=== PATIENT | female | born 1970 | race Caucasian/White ===

== ENCOUNTER 2017-02-15 12:31 | Emergency (ER) | payer SELFPAY ==
[~2017-02-15] VITALS: Ht 165.1 cm; Wt 152.7 kg
[~2017-02-15 12:31] MED LIST: CYAN100T PO; DOCU-30 PO; ERGO500017 PO; LEVO150T PO; LEVO300T4 PO; LEVO75TA5 PO; METH500T7 PO; ONDA4TAB7 PO; OXYC20TA2 PO; OXYC5CAP4 PO; OXYC5TAB3 PO; POLY17PO5 PO; SOLI10TA PO; VENL150C PO; VENL75TA2 PO; WARF5TAB PO; WARF5TAB7 PO-COUM; ZOLP10TA PO; [UNRECOGNIZED DRUG - OTHER]
[2017-02-15 12:34] VITALS: BP 175/110
[2017-02-15] MEDS ORDERED: KETOROLAC 30 MG/1 ML IM ONE (14:00)
[2017-02-15] MEDS ORDERED: KETOROLAC 30 MG/1 ML ONE (14:09)
[2017-02-15] MEDS ORDERED: ONDANSETRON ODT 4 MG PO ONE (14:30)
[2017-02-15] MEDS ORDERED: ONDANSETRON ODT 4 MG ONE (14:32)
== END 2017-02-15 14:47 | disposition left against medical advice (07) ==
LOC: ED 14:41
DX: S40.012A Contusion of left shoulder, initial encounter (principal); M19.212 Secondary osteoarthritis, left shoulder; I10 Essential (primary) hypertension; E11.9 Type 2 diabetes mellitus without complications; E07.9 Disorder of thyroid, unspecified; Z90.49 Acquired absence of other specified parts of digestive tract; Z90.710 Acquired absence of both cervix and uterus; Z88.0 Allergy status to penicillin; Z88.1 Allergy status to other antibiotic agents; Z79.01 Long term (current) use of anticoagulants; W18.2XXA Fall in (into) shower or empty bathtub, initial encounter; Y93.89 Activity, other specified; Y92.89 Other specified places as the place of occurrence of the external cause; Y99.8 Other external cause status
CPT/HCPCS: 73030; 96372; 99284; J1885

== ENCOUNTER 2017-07-18 00:22 | Inpatient (IN) | payer SELFPAY ==
[~2017-07-18] VITALS: Ht 165.1 cm; Wt 156.1 kg
[~2017-07-18 00:22] MED LIST changes: +DOCU-131 PO; -DOCU-30 PO; +OXYC5CAP2 PO; -OXYC5CAP4 PO; -SOLI10TA PO; +SOLI10TA2 PO
[2017-07-18] MEDS ORDERED: HYDROmorphone 1 MG/ML, 1ML IM PRN (01:00)
[2017-07-18] MEDS ORDERED: HYDROmorphone 1 MG/ML, 1ML ONE ×3 (01:03→05:51)
[2017-07-18] MEDS ORDERED: FENTANYL PF 100 MCG/2ML ONE ×4 (02:34→11:04)
[2017-07-18] MEDS ORDERED: KETAMINE 10 MG/ML, 20ML ONE (02:35)
[2017-07-18] MEDS ORDERED: FENTANYL PF 100 MCG/2ML IV ONE (03:00)
[2017-07-18] MEDS ORDERED: ONDANSETRON 2MG/ML, 2ML ONE ×2 (03:40→08:50)
[2017-07-18] MEDS ORDERED: ONDANSETRON 2MG/ML, 2ML IVPush ONE ×2 (04:30)
[2017-07-18] MEDS ORDERED: NS + 20MEQ KCL 1,000 ML IV SCH (05:01)
[2017-07-18] MEDS: HYDROmorphone 1 MG/ML, 1ML IV PRN ×2 (05:27→05:50)
[2017-07-18] MEDS ORDERED: KETAMINE 10 MG/ML, 20ML IV ONE (05:30)
[2017-07-18] MEDS ORDERED: POLYETHYLENE GLYCOL 17 GM PACKET PO PRN (05:30)
[2017-07-18] MEDS ORDERED: OXYcodone IR 5MG TABLET PO PRN (05:30)
[2017-07-18 05:58] LABS: HEMATOCRIT 39.9 % (34.6-47.8); HEMOGLOBIN 13.2 g/dL (11.7-16.4); WHITE BLOOD COUNT 8.1 x10^3/uL (3.4-10)
[2017-07-18 06:14] LABS: BLOOD UREA NITROGEN 11 mg/dL (7-18)
[2017-07-18 06:57] VITALS: BP 138/84
[2017-07-18] MEDS: INSULIN ASPART 100 UNITS/ML, PEN SQ-INSULIN SCH ×4 (07:00→21:04)
[2017-07-18] MEDS: morphine SULFATE 10 MG/ML, 1ML IVPush PRN ×5 (07:19→22:26)
[2017-07-18] MEDS ORDERED: EPINEPHRINE 1 MG/ML, 1ML ONE (08:03)
[2017-07-18] MEDS ORDERED: BUPIVACAINE/PF 0.5% ONE (08:04)
[2017-07-18] MEDS ORDERED: MIDAZOLAM 1 MG/ML, 2ML ONE (08:15)
[2017-07-18] MEDS ORDERED: PROPOFOL 10 MG/ML, 50ML ONE (08:50)
[2017-07-18] MEDS ORDERED: CEFAZOLIN 1,000 MG ONE (08:50)
[2017-07-18] MEDS ORDERED: METOPROLOL 1 MG/ML, 5ML ONE (08:50)
[2017-07-18] MEDS ORDERED: DEXAMETHASONE 4 MG/ML, 1ML ONE (08:50)
[2017-07-18] MEDS: SENNA/DOCUSATE TABLET PO SCH (09:00)
[2017-07-18] MEDS: LEVOTHYROXINE 150 MCG TABLET PO SCH (09:00)
[2017-07-18] MEDS ORDERED: HYDROmorphone 1 MG/ML, 1ML IV PRN (10:00)
[2017-07-18] MEDS ORDERED: MEPERIDINE/PF 25MG/0.5ML IVPush PRN (10:00)
[2017-07-18] MEDS ORDERED: OXYcodone 5 MG/5 ML ORAL.SOL UDC PO PRN (10:00)
[2017-07-18] MEDS ORDERED: ALBUTEROL SULFATE 2.5 MG/3 ML NPPB PRN (10:00)
[2017-07-18] MEDS ORDERED: hydrALAzine 20 MG/ML, 1ML IV PRN (10:00)
[2017-07-18] MEDS ORDERED: METOPROLOL 1 MG/ML, 5ML IV PRN (10:00)
[2017-07-18] MEDS ORDERED: PROMETHAZINE 25 MG/ML, 1ML IV PRN (10:00)
[2017-07-18] MEDS: FENTANYL PF 100 MCG/2ML IV PRN ×2 (11:00→11:20)
[2017-07-18] MEDS ORDERED: MEPERIDINE/PF 25MG/0.5ML ONE (11:05)
[2017-07-18] MEDS ORDERED: OXYcodone 5 MG/5 ML ORAL.SOL UDC ONE (11:05)
[2017-07-18] MEDS ORDERED: HYDROmorphone 2 MG/ML, 1ML ONE (11:27)
[2017-07-18 14:29] VITALS: BP 117/53
[2017-07-18] MEDS: CEFAZOLIN PMX 2GM/50ML 50 ML IVPB SCH (16:56)
[2017-07-18] MEDS: OXYcodone IR 5MG TABLET PO PRN (19:16)
[2017-07-18] MEDS: ONDANSETRON 2MG/ML, 2ML IVPush PRN (19:21)
[2017-07-18 19:59] VITALS: BP 168/84
[2017-07-18] MEDS: ZOLPIDEM 10MG TABLET PO SCH (21:00)
[2017-07-18] MEDS: ENOXAPARIN 40 MG/0.4 ML SQ SCH (21:01)
[2017-07-18 23:27] VITALS: BP 135/79
[2017-07-19] MEDS: CEFAZOLIN PMX 2GM/50ML 50 ML IVPB SCH (00:49)
[2017-07-19] MEDS: OXYcodone IR 5MG TABLET PO PRN ×6 (01:27→23:58)
[2017-07-19 01:40] VITALS: BP 117/65
[2017-07-19] MEDS: morphine SULFATE 10 MG/ML, 1ML IVPush PRN ×3 (02:23→09:45)
[2017-07-19 05:52] LABS: BLOOD UREA NITROGEN 9 mg/dL (7-18)
[2017-07-19] MEDS: INSULIN ASPART 100 UNITS/ML, PEN SQ-INSULIN SCH ×4 (06:08→21:45)
[2017-07-19] MEDS: ONDANSETRON 2MG/ML, 2ML IVPush PRN ×4 (06:31→23:58)
[2017-07-19] MEDS: SENNA/DOCUSATE TABLET PO SCH (08:05)
[2017-07-19] MEDS: LEVOTHYROXINE 150 MCG TABLET PO SCH (08:09)
[2017-07-19 08:18] VITALS: BP 112/67
[2017-07-19 13:17] VITALS: BP 120/77
[2017-07-19] MEDS ORDERED: WARFARIN 7.5 MG TABLET PO-COUM ONE (18:30)
[2017-07-19 18:47] VITALS: BP 117/59
[2017-07-19] MEDS: ENOXAPARIN 40 MG/0.4 ML SQ SCH (20:14)
[2017-07-19] MEDS: VENLAFAXINE 75MG TABLET PO SCH (20:14)
[2017-07-19] MEDS: ZOLPIDEM 10MG TABLET PO SCH (22:05)
[2017-07-19] MEDS: ALUMINUM/MAG/SIMETHICONE 30 ML UDC PO PRN (23:01)
[2017-07-20 01:42] VITALS: BP 88/55
[2017-07-20] MEDS: OXYcodone IR 5MG TABLET PO PRN ×5 (03:55→21:15)
[2017-07-20] MEDS: DOCUSATE 100 MG CAPSULE PO PRN ×2 (03:55→21:15)
[2017-07-20] MEDS: INSULIN ASPART 100 UNITS/ML, PEN SQ-INSULIN SCH (06:25)
[2017-07-20 07:26] VITALS: BP 93/57
[2017-07-20] MEDS: LEVOTHYROXINE 150 MCG TABLET PO SCH (08:34)
[2017-07-20] MEDS: SENNA/DOCUSATE TABLET PO SCH (08:34)
[2017-07-20] MEDS: VENLAFAXINE 75MG TABLET PO SCH ×2 (08:34→21:23)
[2017-07-20] MEDS: ALUMINUM/MAG/SIMETHICONE 30 ML UDC PO PRN (10:32)
[2017-07-20] MEDS: CYCLOBENZAPRINE 10 MG TABLET PO PRN ×2 (10:36→21:15)
[2017-07-20 13:29] VITALS: BP 103/57
[2017-07-20] MEDS: ONDANSETRON 2MG/ML, 2ML IVPush PRN (17:40)
[2017-07-20] MEDS ORDERED: WARFARIN 7.5 MG TABLET PO-COUM SCH (18:00)
[2017-07-20] MEDS ORDERED: LORazepam 0.5MG TABLET PO ONE (19:30)
[2017-07-20 20:15] VITALS: BP 96/61
[2017-07-20] MEDS ORDERED: LORazepam 1MG TABLET ONE (21:10)
[2017-07-20] MEDS: ZOLPIDEM 10MG TABLET PO SCH (21:15)
[2017-07-20] MEDS: ENOXAPARIN 40 MG/0.4 ML SQ SCH (21:23)
[2017-07-21] MEDS: ALUMINUM/MAG/SIMETHICONE 30 ML UDC PO PRN ×3 (00:10→21:00)
[2017-07-21] MEDS: ONDANSETRON 2MG/ML, 2ML IVPush PRN ×2 (00:11→06:10)
[2017-07-21] MEDS: OXYcodone IR 5MG TABLET PO PRN ×5 (00:58→19:20)
[2017-07-21 04:42] VITALS: BP 91/52
[2017-07-21] MEDS: CYCLOBENZAPRINE 10 MG TABLET PO PRN ×3 (06:04→21:01)
[2017-07-21] MEDS: DOCUSATE 100 MG CAPSULE PO PRN ×2 (06:10→21:01)
[2017-07-21 07:59] VITALS: BP 90/54
[2017-07-21] MEDS: VENLAFAXINE 75MG TABLET PO SCH ×2 (08:55→21:01)
[2017-07-21] MEDS: SENNA/DOCUSATE TABLET PO SCH (08:55)
[2017-07-21] MEDS: LEVOTHYROXINE 150 MCG TABLET PO SCH (08:56)
[2017-07-21 13:06] VITALS: BP 91/58
[2017-07-21] MEDS ORDERED: WARFARIN 10 MG TABLET PO-COUM ONE (18:00)
[2017-07-21 19:00] VITALS: BP 123/67
[2017-07-21] MEDS: ZOLPIDEM 10MG TABLET PO SCH (21:01)
[2017-07-21] MEDS: ENOXAPARIN 40 MG/0.4 ML SQ SCH (21:01)
[2017-07-22] MEDS: OXYcodone IR 5MG TABLET PO PRN ×6 (00:28→22:08)
[2017-07-22 03:23] VITALS: BP 102/69
[2017-07-22] MEDS: CYCLOBENZAPRINE 10 MG TABLET PO PRN ×3 (05:14→22:08)
[2017-07-22 08:16] VITALS: BP 92/53
[2017-07-22] MEDS: SENNA/DOCUSATE TABLET PO SCH (08:43)
[2017-07-22] MEDS: LEVOTHYROXINE 150 MCG TABLET PO SCH (08:43)
[2017-07-22] MEDS: VENLAFAXINE 75MG TABLET PO SCH ×2 (08:43→22:08)
[2017-07-22 14:15] VITALS: BP 90/54
[2017-07-22] MEDS ORDERED: WARFARIN 10 MG TABLET PO-COUM ONE (18:00)
[2017-07-22 18:59] VITALS: BP 99/66
[2017-07-22] MEDS: ENOXAPARIN 40 MG/0.4 ML SQ SCH (22:07)
[2017-07-22] MEDS: ZOLPIDEM 10MG TABLET PO SCH (22:08)
[2017-07-23 02:12] VITALS: BP 91/60
[2017-07-23] MEDS: OXYcodone IR 5MG TABLET PO PRN ×5 (02:18→21:28)
[2017-07-23] MEDS: LEVOTHYROXINE 150 MCG TABLET PO SCH (07:28)
[2017-07-23 07:41] VITALS: BP 92/57
[2017-07-23] MEDS: SENNA/DOCUSATE TABLET PO SCH (08:57)
[2017-07-23] MEDS: CYCLOBENZAPRINE 10 MG TABLET PO PRN ×2 (08:57→17:33)
[2017-07-23] MEDS: VENLAFAXINE 75MG TABLET PO SCH ×2 (08:57→21:28)
[2017-07-23 12:57] VITALS: BP 92/53
[2017-07-23] MEDS ORDERED: WARFARIN 5 MG TABLET PO-COUM SCH (18:00)
[2017-07-23 20:00] VITALS: BP 98/52
[2017-07-23 20:05] VITALS: BP 90/52
[2017-07-23] MEDS: ZOLPIDEM 10MG TABLET PO SCH (21:29)
[2017-07-24] MEDS: OXYcodone IR 5MG TABLET PO PRN ×5 (01:31→20:48)
[2017-07-24] MEDS: CYCLOBENZAPRINE 10 MG TABLET PO PRN ×3 (01:32→18:13)
[2017-07-24 02:10] VITALS: BP 97/56
[2017-07-24 07:01] VITALS: BP 91/50
[2017-07-24] MEDS: VENLAFAXINE 75MG TABLET PO SCH ×2 (09:13→20:48)
[2017-07-24] MEDS: LEVOTHYROXINE 150 MCG TABLET PO SCH (09:14)
[2017-07-24] MEDS: SENNA/DOCUSATE TABLET PO SCH (09:14)
[2017-07-24 13:40] VITALS: BP 88/46
[2017-07-24 16:03] VITALS: BP 106/50
[2017-07-24] MEDS ORDERED: WARFARIN 3 MG TABLET PO-COUM SCH (18:00)
[2017-07-24] MEDS ORDERED: ONDANSETRON ODT 4 MG ONE (18:11)
[2017-07-24] MEDS ORDERED: ONDANSETRON 4 MG TABLET PO PRN (18:30)
[2017-07-24] MEDS: ZOLPIDEM 10MG TABLET PO SCH (20:47)
[2017-07-24 20:55] VITALS: BP 109/60
[2017-07-25] MEDS: OXYcodone IR 5MG TABLET PO PRN ×5 (00:37→20:00)
[2017-07-25 02:41] VITALS: BP 101/64
[2017-07-25] MEDS: CYCLOBENZAPRINE 10 MG TABLET PO PRN ×3 (03:07→20:00)
[2017-07-25] MEDS: LEVOTHYROXINE 150 MCG TABLET PO SCH (06:47)
[2017-07-25 07:19] VITALS: BP 98/57
[2017-07-25] MEDS: VENLAFAXINE 75MG TABLET PO SCH ×2 (10:51→21:20)
[2017-07-25] MEDS: SENNA/DOCUSATE TABLET PO SCH (10:51)
[2017-07-25 12:40] VITALS: BP 130/69
[2017-07-25] MEDS ORDERED: WARFARIN 7.5 MG TABLET PO-COUM SCH (18:00)
[2017-07-25 19:54] VITALS: BP 125/69
[2017-07-25] MEDS: ALUMINUM/MAG/SIMETHICONE 30 ML UDC PO PRN (20:00)
[2017-07-25] MEDS: ZOLPIDEM 10MG TABLET PO SCH (21:20)
[2017-07-26] MEDS: OXYcodone IR 5MG TABLET PO PRN ×6 (00:06→21:35)
[2017-07-26 02:06] VITALS: BP 111/59
[2017-07-26] MEDS: LEVOTHYROXINE 150 MCG TABLET PO SCH (04:26)
[2017-07-26] MEDS: CYCLOBENZAPRINE 10 MG TABLET PO PRN ×3 (04:30→21:34)
[2017-07-26 07:06] VITALS: BP 91/60
[2017-07-26] MEDS: SENNA/DOCUSATE TABLET PO SCH (09:17)
[2017-07-26] MEDS: VENLAFAXINE 75MG TABLET PO SCH ×2 (09:17→21:34)
[2017-07-26 15:53] VITALS: BP 93/62
[2017-07-26] MEDS ORDERED: WARFARIN 7.5 MG TABLET PO-COUM SCH (18:00)
[2017-07-26 20:04] VITALS: BP 97/54
[2017-07-26] MEDS: ZOLPIDEM 10MG TABLET PO SCH (21:35)
[2017-07-27 01:52] VITALS: BP 98/57
[2017-07-27] MEDS: OXYcodone IR 5MG TABLET PO PRN ×6 (02:19→23:07)
[2017-07-27] MEDS: LEVOTHYROXINE 150 MCG TABLET PO SCH (06:20)
[2017-07-27 07:18] VITALS: BP 133/61
[2017-07-27] MEDS: VENLAFAXINE 75MG TABLET PO SCH ×2 (09:45→21:43)
[2017-07-27] MEDS: SENNA/DOCUSATE TABLET PO SCH (09:45)
[2017-07-27 13:40] VITALS: BP 104/59
[2017-07-27 14:46] VITALS: BP 106/63
[2017-07-27] MEDS ORDERED: WARFARIN 7.5 MG TABLET PO-COUM ONE (18:00)
[2017-07-27 19:25] VITALS: BP 93/56
[2017-07-27] MEDS: ZOLPIDEM 10MG TABLET PO SCH (21:43)
[2017-07-27] MEDS: CYCLOBENZAPRINE 10 MG TABLET PO PRN (21:47)
[2017-07-28 02:25] VITALS: BP 100/56
[2017-07-28] MEDS: OXYcodone IR 5MG TABLET PO PRN ×5 (03:55→21:52)
[2017-07-28] MEDS: LEVOTHYROXINE 150 MCG TABLET PO SCH (06:37)
[2017-07-28 07:29] VITALS: BP 97/65
[2017-07-28] MEDS: SENNA/DOCUSATE TABLET PO SCH (09:32)
[2017-07-28] MEDS: VENLAFAXINE 75MG TABLET PO SCH ×2 (09:32→21:52)
[2017-07-28 13:32] VITALS: BP 102/71
[2017-07-28] MEDS: CYCLOBENZAPRINE 10 MG TABLET PO PRN ×2 (13:59→21:52)
[2017-07-28] MEDS ORDERED: WARFARIN 3 MG TABLET PO-COUM ONE (18:00)
[2017-07-28 19:20] VITALS: BP 105/69
[2017-07-28] MEDS: ZOLPIDEM 10MG TABLET PO SCH (21:52)
[2017-07-29] MEDS: OXYcodone IR 5MG TABLET PO PRN ×5 (03:16→21:17)
[2017-07-29] MEDS: LEVOTHYROXINE 150 MCG TABLET PO SCH (05:45)
[2017-07-29 07:03] VITALS: BP 92/54
[2017-07-29] MEDS: VENLAFAXINE 75MG TABLET PO SCH ×2 (08:30→21:17)
[2017-07-29] MEDS: SENNA/DOCUSATE TABLET PO SCH (08:30)
[2017-07-29] MEDS: CYCLOBENZAPRINE 10 MG TABLET PO PRN ×2 (12:23→21:17)
[2017-07-29 13:00] VITALS: BP 107/67
[2017-07-29] MEDS ORDERED: WARFARIN 5 MG TABLET PO-COUM ONE (18:00)
[2017-07-29 19:53] VITALS: BP 137/80
[2017-07-29] MEDS: ZOLPIDEM 10MG TABLET PO SCH (21:17)
[2017-07-30] MEDS: OXYcodone IR 5MG TABLET PO PRN ×4 (01:40→14:39)
[2017-07-30 02:44] VITALS: BP 119/77
[2017-07-30] MEDS: LEVOTHYROXINE 150 MCG TABLET PO SCH (06:12)
[2017-07-30 08:16] VITALS: BP 132/81
[2017-07-30 09:18] VITALS: BP 95/65
[2017-07-30] MEDS: VENLAFAXINE 75MG TABLET PO SCH (09:20)
[2017-07-30] MEDS: SENNA/DOCUSATE TABLET PO SCH (09:20)
[2017-07-30] MEDS ORDERED: OXYC5CAP2 PO (15:13)
[2017-07-30] MEDS ORDERED: CYCL-259 PO (15:16)
[2017-07-30 16:28] VITALS: BP 121/83
[2017-07-30] MEDS ORDERED: WARFARIN 3 MG TABLET PO-COUM ONE (18:00)
== END 2017-07-30 16:40 | disposition home or self-care (01) | DRG 493 ==
LOC: ED 00:31 → EDIP 04:35 → SUATTDRO 04:54 → 4NOR 06:20
PROVIDERS: ADMIT Family Medicine; ATTEND Family Medicine
PROC: 0QSH04Z Reposition Left Tibia with Internal Fixation Device, Open Approach (ICD-10-PCS; 2017-07-18)
PROC: 0QSK04Z Reposition Left Fibula with Internal Fixation Device, Open Approach (ICD-10-PCS; principal; 2017-07-18 08:30)
DX: S82.842A Displaced bimalleolar fracture of left lower leg, initial encounter for closed fracture (principal); Z68.43 Body mass index [BMI] 50.0-59.9, adult; E11.40 Type 2 diabetes mellitus with diabetic neuropathy, unspecified; W18.39XA Other fall on same level, initial encounter; E03.9 Hypothyroidism, unspecified; E66.01 Morbid (severe) obesity due to excess calories; G47.33 Obstructive sleep apnea (adult) (pediatric); G89.29 Other chronic pain; G89.11 Acute pain due to trauma; I10 Essential (primary) hypertension; I48.91 Unspecified atrial fibrillation; F32.9 Major depressive disorder, single episode, unspecified; M54.9 Dorsalgia, unspecified; N32.81 Overactive bladder; R09.02 Hypoxemia; Z79.01 Long term (current) use of anticoagulants; Y93.89 Activity, other specified; Y92.89 Other specified places as the place of occurrence of the external cause; Y99.8 Other external cause status; Z79.84 Long term (current) use of oral hypoglycemic drugs; Z80.1 Family history of malignant neoplasm of trachea, bronchus and lung; Z85.830 Personal history of malignant neoplasm of bone; Z86.711 Personal history of pulmonary embolism; Z86.718 Personal history of other venous thrombosis and embolism; Z91.19 Patient's noncompliance with other medical treatment and regimen
CPT/HCPCS: 27840; 36415; 71010; 76001; 80048; 82040; 82962; 83036; 83735; 85025; 85610; 93005; 96372; 96374; 96375; 99152; 99153; C1713; J0171; J0690; J1100; J1170; J1650; J2175; J2250; J2405; J2704; J3010; J3480; J3490; Q0162; J2270

== ENCOUNTER 2017-08-13 20:46 | Emergency (ER) | payer OTHER ==
[~2017-08-13] VITALS: Ht 165.1 cm; Wt 140.0 kg
[~2017-08-13 20:46] MED LIST changes: +CYCL-259 PO
[2017-08-13 20:49] VITALS: BP 129/83
[2017-08-13] MEDS ORDERED: OXYcodone 5 MG/5 ML ORAL.SOL UDC PO ONE (21:30)
[2017-08-13] MEDS ORDERED: OXYcodone ORAL.CONC 20 MG/ML PO ONE (21:30)
[2017-08-13] MEDS ORDERED: OXYcodone 5 MG/5 ML ORAL.SOL UDC ONE (21:48)
== END 2017-08-13 21:57 | disposition home or self-care (01) ==
LOC: ED 21:24
DX: S82.842A Displaced bimalleolar fracture of left lower leg, initial encounter for closed fracture (principal); W18.2XXA Fall in (into) shower or empty bathtub, initial encounter; Y93.E1 Activity, personal bathing and showering; Y99.8 Other external cause status; Y92.89 Other specified places as the place of occurrence of the external cause
CPT/HCPCS: 29515; 99283